=== PATIENT | male | born 1980 | race Two or more races ===

== ENCOUNTER 2017-10-04 13:55 | Emergency (ER) | payer OTHER ==
[~2017-10-04] VITALS: Ht 170.2 cm; Wt 72.6 kg
--- NOTE | 2017-10-04 14:55 | NUR ---
DEVORA CHARGE HAND AT BEDSIDE FOR EVAL.
[2017-10-04] MEDS ORDERED: TDAP [DIPH/PERTUSSIS/TET] 0.5 ML VIAL IM ONE ×2 (15:00→15:37)
[2017-10-04] MEDS ORDERED: ONDANSETRON 4 MG TAB.RAPDIS SL ONE (15:00)
[2017-10-04] MEDS ORDERED: oxyCODONE/APAP (5/325 MG) 1 UDTAB TABLET PO ONE (15:00)
[2017-10-04] MEDS ORDERED: oxyCODONE/APAP (5/325 MG) 1 UDTAB TABLET ONE (15:37)
[2017-10-04] MEDS ORDERED: ONDANSETRON 4 MG TAB.RAPDIS ONE (15:37)
--- NOTE | 2017-10-04 16:20 | NUR ---
LAC REPAIR DONE. WOUND CARE DONE. SPLINT PROVIDED. PT D/C HOME IN STABLE CONDITION.
[2017-10-04 16:23] VITALS: BP 130/77
== END 2017-10-04 16:24 | disposition home or self-care (01) ==
LOC: ER 13:56
DX: S61.512A Laceration without foreign body of left wrist, initial encounter (principal); F17.200 Nicotine dependence, unspecified, uncomplicated; Z23 Encounter for immunization; W26.0XXA Contact with knife, initial encounter; Y93.89 Activity, other specified; Y92.89 Other specified places as the place of occurrence of the external cause; Y99.8 Other external cause status
CPT/HCPCS: 90715; A6403; Q0162